=== PATIENT | female | born 1995 | race Hispanic/Latino ===

== ENCOUNTER 2018-11-03 14:08 | Emergency (ER) | payer OTHER, SELFPAY ==
[2018-11-03 15:45] LABS: Urine Blood NEGATIVE (NEG); Urine Glucose NEGATIVE (NEG); Urine Protein NEGATIVE (NEG); Urine pH 6.5 (5.0-7.0)
[2018-11-03 16:20] LABS: ALT/SGPT 48 U/L (12-78); AST/SGOT 23 U/L (15-37); Albumin 3.7 g/dL (3.4-5.0); Alkaline Phosphatase 76 U/L (45-117); BUN Blood Urea Nitrogen 10 mg/dL (7-18); Bicarbonate 27 mmol/L (21-32); Bilirubin Direct < 0.1 mg/dL (0-0.2); Bilirubin Total 0.3 mg/dL (0.2-1.0); Glucose Level 92 mg/dL (74-106); Lipase 43 U/L (73-393); Potassium 3.5 mmol/L (3.5-5.1); Protein, Total 7.5 g/dL (6.4-8.2); Sodium Level 143 mmol/L (136-145)
[2018-11-03 16:28] LABS: Absolute Lymphocytes (CBC) 2.5 K/uL (0.7-4.9); Basophils % 0.5 % (0-1.3); Hematocrit 37.4 % (36.0-45.0); Lymphocytes % 23.8 % (15.3-44.8); MPV 7.8 fL (7.6-11.3)
--- NOTE | 2018-11-03 17:02 | RAD REPORT ---
EXAM DESCRIPTION: CT - Abdomen Pelvis W Contrast - 11/03/2018 4:40 pm CLINICAL HISTORY: right lower abdominal painright lower abdominal pain COMPARISON: None. TECHNIQUE: Biphasic, helical CT imaging of the abdomen and pelvis was performed following 100 ml non -ionic IV contrast. No oral contrast administered. All CT scans are performed using dose optimization technique as appropriate and may include automated exposure control or mA/KV adjustment according to patient size. FINDINGS: No suspicious findings in the lung bases. Fatty infiltration of the liver is present with no focal abnormality. Fatty infiltration of the pancr eas is present with volume loss. No acute pancreatic process seen. No splenomegaly or focal splenic f inding. Gallbladder and biliary tree are also without suspicious finding. Symmetric renal function is seen with no hydronephrosis or suspicious renal mass. No pyelonephritis o r acute parenchymal process. No bladder abnormalities. No adrenal abnormalities. No gastric dilatation or gastric wall thickening. No dilated large or small bowel loops seen. Small m esenteric lymph nodes are present in the right lower quadrant. There small amount of stranding in the fat near the cecum. Appendix is difficult to clearly distinguish from the unopacified small bowel lo ops. A few small mesenteric lymph nodes are seen in the central abdomen. No free air, free fluid or inflammatory stranding. No hernia, mass or bulky lymphadenopathy. Uterus and ovaries show no suspicious findings. No suspicious bony findings. IMPRESSION: No bowel obstruction or free air. Minimal stranding is seen in the right lower quadrant near the cecum. The appendix is not clearly jennifer ntifiable from the unopacified bowel loops. Small mesenteric lymph nodes are seen in the central abdomen and right lower quadrant. Acute appendicitis cannot be excluded. Correlation is needed with any clinical findings for acute alexander endicitis. As clinical findings warrant, the exam can be repeated following oral contrast.
--- NOTE | 2018-11-03 20:11 | RAD REPORT ---
EXAM DESCRIPTION: CT - Pelvis Wo Cont - 11/03/2018 8:03 pm CLINICAL HISTORY: right lower abdominal pain, rule out appy COMPARISON: CT abdomen and pelvis November 03 TECHNIQUE: Axial 5 millimeter thick images of the pelvis were obtained following oral contrast. The CT scan was performed using dose optimization techniques as appropriate to a performed exam incl uding one or more of the following: Automated exposure control, adjustment of the mA and/or kV accord ing to patient size (this includes techniques or standardized protocols for targeted exams where dose is matched to indication/reason for exam) and use of iterative reconstruction technique. FINDINGS: Repeat imaging of the pelvis was performed to allow better visualization of the bowel and appendix. Again noted are numerous mesenteric lymph nodes in the right lower quadrant and in the central mesent eries. Oral CT contrast has reached the terminal ileum and tip of the cecum. The appendix is better v isualized on the current study. Suspicion for appendicitis is diminished following the use repeat taylor ges. A suspicious ovarian process is not identified. The stranding is less evident on the current exa mination. IMPRESSION: Repeat imaging shows better evaluation of the appendix and right lower quadrant structur es. Currently, appendicitis is not suspected. Patient continues to demonstrate multiple small mesenteric lymph nodes.
--- NOTE | 2018-11-03 20:57 | ER ---
Nurse's Notes [facility] Name: Shelia Carr Age: 23 yrs Sex: Female : 1995 Arrival Date: 11/03/2018 Time: 14:13 Bed 23 Private MD: Diagnosis: Lower abdominal pain, unspecified Presentation: 11/03 14:25 Presenting complaint: Patient states: lower abd pain and nausea that began last night. aa5 Pt denies vomiting, denies diarrhea. Transition of care: patient was not received from another setting of care. Onset of symptoms was October 2018. Risk Assessment: Do you want to hurt yourself or someone else? Patient reports no desire to harm self or others. Initial Sepsis Screen: Does the patient meet any 2 criteria? No. Patient's initial sepsis screen is negative. Does the patient have a suspected source of infection? No. Patient's initial sepsis screen is negative. Care prior to arrival: None. 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 - Social history:: Smoking status: Patient/guardian denies using tobacco. - Ebola Screening: : No symptoms or risks identified at this time. Screenin:43 Abuse screen: Denies threats or abuse. Denies injuries from another. Nutritional ca1 screening: No deficits noted. Tuberculosis screening: No symptoms or risk factors identified. Fall Risk None identified. Assessment: 14:43 General: Appears in no apparent distress. comfortable, Behavior is calm, cooperative, ca1 appropriate for age. Pain: Complains of pain in right lower quadrant and suprapubic area Pain does not radiate. Pain currently is 5 out of 10 on a pain scale. Quality of pain is described as sharp, Pain began 1 day ago. Is continuous, Alleviated by heat application. Neuro: Level of Consciousness is awake, alert, obeys commands, Oriented to person, place, time, situation. Cardiovascular: Heart tones S1 S2 present Capillary refill < 3 seconds Patient's skin is warm and dry. Respiratory: Airway is patent Respiratory effort is even, unlabored, Respiratory pattern is regular, symmetrical, Breath sounds are clear bilaterally. GI: Abdomen is round non-distended, Bowel sounds present X 4 quads. Abd is soft and non tender X 4 quads. : No deficits noted. No signs and/or symptoms were reported regarding the genitourinary system. EENT: No deficits noted. No signs and/or symptoms were reported regarding the EENT system. Derm: Skin is intact, is healthy with good turgor, Skin is pink, warm \T\ dry. Musculoskeletal: Circulation, motion, and sensation intact. Capillary refill < 3 seconds, Range of motion: intact in all extremities. 15:44 Reassessment: Patient appears in no apparent distress at this time. Patient and/or ca1 family updated on plan of care and expected duration. Pain level reassessed. Patient is alert, oriented x 3, equal unlabored respirations, skin warm/dry/pink. 17:09 Reassessment: Patient appears in no apparent distress at this time. Patient and/or ca1 family updated on plan of care and expected duration. Pain level reassessed. Patient is alert, oriented x 3, equal unlabored respirations, skin warm/dry/pink. 18:04 Reassessment: Patient appears in no apparent distress at this time. Patient and/or ca1 family updated on plan of care and expected duration. Pain level reassessed. Patient is alert, oriented x 3, equal unlabored respirations, skin warm/dry/pink. PO contrast completed. Notified CT scan. 19:25 Reassessment: Patient appears in no apparent distress at this time. Patient and/or ca1 family updated on plan of care and expected duration. Pain level reassessed. Patient is alert, oriented x 3, equal unlabored respirations, skin warm/dry/pink. 20:44 Reassessment: Patient appears in no apparent distress at this time. Patient and/or ca1 family updated on plan of care and expected duration. Pain level reassessed. Patient is alert, oriented x 3, equal unlabored respirations, skin warm/dry/pink. Vital Signs: 14:26 BP 130 / 62; Pulse 86; Resp 16 S; Temp 97.6(TE); Pulse Ox 98% on R/A; Weight 77.11 kg aa5 (R); Height 5 ft. 5 in. (165.10 cm) (R); Pain 5/10; 15:40 BP 107 / 88; Pulse 68; Resp 15 S; Pulse Ox 100% on R/A; ca1 17:13 BP 111 / 76; Pulse 81; Resp 16 S; Pulse Ox 99% on R/A; ca1 18:29 BP 110 / 72; Pulse 79; Resp 15; Temp 98.3(O); Pulse Ox 100% on R/A; ca1 19:25 BP 108 / 76; Pulse 81; Resp 17 S; Pulse Ox 98% on R/A; ca1 20:44 BP 113 / 81; Pulse 82; Resp 17 S; Pulse Ox 99% on R/A; ca1 14:26 Body Mass Index 28.29 (77.11 kg, 165.10 cm) aa5 ED Course: 14:13 Patient arrived in ED. mr 14:25 Triage completed. aa5 14:25 Arm band placed on. aa 14:28 Ace Villar PA is PHCP. [facility] 14:28 Fidel Terry MD is Attending Physician. jmm 14:43 Patient has correct armband on for positive identification. Placed in gown. Bed in low ca1 position. Call light in reach. Side rails up X 1. Pulse ox on. NIBP on. Warm blanket given. 14:47 Gin Sherwood, RN is Primary Nurse. ca1 15:18 Missed attempt(s): 22 gauge in left upper arm. Bleeding controlled, band aid applied, ca1 catheter tip intact. 15:38 Missed attempt(s): 22 gauge in left antecubital area. Bleeding controlled, band aid ca1 applied, catheter tip intact. 15:51 Inserted saline lock: 22 gauge in right antecubital area, using aseptic technique. ca1 Blood collected. 16:15 Radiology exam delayed due to lab results not completed at this time. (BUN/Creatinine). kw1 16:17 No provider procedures requiring assistance completed. ca1 16:51 CT Abd/Pelvis - IV Contrast Only In Process Unspecified. EDMS 18:01 Rashawn Odell MD is Attending Physician. jmm 20:02 Pelvis Wo Cont In Process Unspecified. EDMS 21:04 IV discontinued, intact, bleeding controlled, No redness/swelling at site. Pressure ca1 dressing applied. Administered Medications: No medications were administered Outcome: 20:56 Discharge ordered by . kdr 21:04 Discharged to home ambulatory, with significant other. ca1 21:04 Condition: stable 21:04 Discharge instructions given to patient, Instructed on discharge instructions, follow up and referral plans. medication usage, Demonstrated understanding of instructions, follow-up care, medications, Prescriptions given X 1. 21:05 Patient left the ED. ca1 Signatures: Dispatcher [employer] EDMS Rashawn Odell MD MD kdr Mickail, Joel, PA PA jmm Rivera, Mary mr Walter, Esmer, RN RN aa5 Randa Hernandez kw1 Gin Sherwood, RN RN ca1 Corrections: (The following items were deleted from the chart) 15:38 15:18 Missed attempt(s): 22 gauge in left antecubital area. Bleeding controlled, band ca1 aid applied, catheter tip intact. ca1
--- NOTE | 2018-11-03 20:57 | EDPHYS ---
Physician Documentation [facility] Name: Shelia Carr Age: 23 yrs Sex: Female : 1995 Arrival Date: 11/03/2018 Time: 14:13 Bed 23 Private MD: ED Physician Rashawn Odell HPI: 11/03 14:49 This 23 yrs old Female presents to ER via Ambulatory with complaints of [facility] Abdominal Pain. 14:49 The patient presents with abdominal pain. Onset: The symptoms/episode began/occurred jmm gradually, 1 day(s) ago. The symptoms do not radiate. Associated signs and symptoms: Pertinent positives: nausea, Pertinent negatives: diarrhea, vomiting. The symptoms are described as achy, intermittent. This is a 23 year old female with no chronic medical conditions that presents to the ED with complaints of right lower abdominal pain beginning 1 day ago. Pain is intermittent. Denies vomiting or diarrhea. Patient states having a history of ovarian cysts. . 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 - Social history:: Smoking status: Patient/guardian denies using tobacco. - Ebola Screening: : No symptoms or risks identified at this time. ROS: 14:49 Constitutional: Negative for fever, chills, and weight loss, Cardiovascular: Negative jmm for chest pain, palpitations, and edema, Respiratory: Negative for shortness of breath, cough, wheezing, and pleuritic chest pain. 14:49 Abdomen/GI: Positive for abdominal pain. 14:49 All other systems are negative. Exam: 14:49 Constitutional: This is a well developed, well nourished patient who is awake, alert, jmm and in no acute distress. Head/Face: atraumatic. Eyes: EOMI, no conjunctival erythema appreciated ENT: Moist Mucus Membranes Neck: Trachea midline, Supple Chest/axilla: Normal chest wall appearance and motion. Cardiovascular: Regular rate and rhythm. No edema appreciated Respiratory: Normal respirations, no respiratory distress appreciated 14:49 Abdomen/GI: Inspection: abdomen appears normal, Bowel sounds: normal, Palpation: soft, mild abdominal tenderness, in the suprapubic area and right lower quadrant. 14:49 Musculoskeletal/extremity: ROM: intact in all extremities. 14:49 Skin: Appearance: Color: normal in color. 14:49 Neuro: Orientation: is normal, Mentation: is normal, Memory: is normal. 14:49 Psych: Behavior/mood is pleasant, cooperative. Vital Signs: 14:26 BP 130 / 62; Pulse 86; Resp 16 S; Temp 97.6(TE); Pulse Ox 98% on R/A; Weight 77.11 kg aa5 (R); Height 5 ft. 5 in. (165.10 cm) (R); Pain 5/10; 15:40 BP 107 / 88; Pulse 68; Resp 15 S; Pulse Ox 100% on R/A; ca1 17:13 BP 111 / 76; Pulse 81; Resp 16 S; Pulse Ox 99% on R/A; ca1 18:29 BP 110 / 72; Pulse 79; Resp 15; Temp 98.3(O); Pulse Ox 100% on R/A; ca1 19:25 BP 108 / 76; Pulse 81; Resp 17 S; Pulse Ox 98% on R/A; ca1 20:44 BP 113 / 81; Pulse 82; Resp 17 S; Pulse Ox 99% on R/A; ca1 14:26 Body Mass Index 28.29 (77.11 kg, 165.10 cm) aa5 MDM: 14:42 Patient medically screened. [facility] 17:59 Data reviewed: vital signs, nurses notes. ED course: CT can not rule out appendicitis. [facility] oral contrast studied order. I discussed the patient with Dr. Odell whom will follow up with the patient. . 18:01 Transition of care: After a detail discussion of the patient's case, care is [facility] transferred to Rashawn Odell MD. 11/03 14:49 Order name: Basic Metabolic Panel; Complete Time: 16:31 [facility] 11/03 14:49 Order name: CBC with Diff; Complete Time: 17:10 [facility] 11/03 14:49 Order name: Creatinine for Radiology; Complete Time: 16:19 [facility] 11/03 14:49 Order name: Hepatic Function; Complete Time: 16:31 [facility] 11/03 14:49 Order name: Lipase; Complete Time: 16:31 [facility] 11/03 15:18 Order name: Urine Dipstick--Ancillary (enter results); Complete Time: 15:46 11/03 14:42 Order name: Urine Dipstick-Ancillary (obtain specimen); Complete Time: 14:57 [facility] 11/03 14:42 Order name: Urine Test (obtain specimen); Complete Time: 14:57 [facility] 11/03 14:49 Order name: IV Saline Lock; Complete Time: 15:52 [facility] 11/03 14:49 Order name: Labs collected and sent; Complete Time: 15:52 [facility] 11/03 14:49 Order name: CT Abd/Pelvis - IV Contrast Only; Complete Time: 17:27 [facility] 11/03 15:20 Order name: Urine --Ancillary (enter results); Complete Time: 15:46 11/03 17:43 Order name: Pelvis Wo Cont; Complete Time: 20:55 EDMS Administered Medications: No medications were administered Disposition: 20:56 Co-signature as Attending Physician, Rashawn Odell MD I agree with the assessment and kdr plan of care. Disposition: 11/03/18 20:56 Discharged to Home. Impression: Lower abdominal pain, unspecified. - Condition is Stable. - Discharge Instructions: Abdominal Pain, Adult. - Prescriptions for Bentyl 20 mg Oral Tablet - take 1 tablet by ORAL route every 6 hours As needed; 20 tablet. - Medication Reconciliation Form, Thank You Letter, Antibiotic Education, Prescription Opioid Use, Work release form, Family Work Release form. - Follow up: Private Physician; When: 2 - 3 days; Reason: Recheck today's complaints, Continuance of care, Re-evaluation by your physician. - Notes: Please follow up with your primary care provider. Please return to the ED if you develop increased right lower abdominal pain, vomiting, fever, or any other concerning symptoms. Signatures: Dispatcher [employer] EDID Rashawn Odell MD MD kdr Mickail, Joel, PA PA jmm Calderon, Audri, RN RN aa5 Gin Sherwood RN RN ca1 Corrections: (The following items were deleted from the chart) 17:43 17:37 Pelvis W/Cont+CT.RAD.BRZ ordered. [facility] 21:05 20:56 11/03/2018 20:56 Discharged to Home. Impression: Lower abdominal pain, ca1 unspecified. Condition is Stable. Discharge Instructions: Abdominal Pain, Adult. Prescriptions for Bentyl 20 mg Oral Tablet - take 1 tablet by ORAL route every 6 hours As needed; 20 tablet. and Forms are Medication Reconciliation Form, Thank You Letter, Antibiotic Education, Prescription Opioid Use. Follow up: Private Physician; When: 2 - 3 days; Reason: Recheck today's complaints, Continuance of care, Re-evaluation by your physician. kdr
[2018-11-03 22:47] VITALS: TEMP 98.3
[2018-11-03 22:50] VITALS: BP 113/81; O2SAT 99
== END 2018-11-03 21:05 | disposition home or self-care (01) ==
LOC: ER 14:08
DX: R10.31 Right lower quadrant pain (principal)
CPT/HCPCS: 36415; 72192; 74177; 80048; 80076; 81003; 81025; 83690; 85025; 99284; Q9967

== ENCOUNTER 2018-12-08 13:14 | Emergency (ER) | payer SELFPAY ==
--- NOTE | 2018-12-08 14:48 | ER ---
Nurse's Notes [facility] Name: Shelia Carr Age: 23 yrs Sex: Female : 1995 Arrival Date: 12/08/2018 Time: 13:17 Bed 10 Private MD: Unknown, Unknown Diagnosis: Diarrhea, unspecified Presentation: 12/08 13:35 Presenting complaint: Patient states: FEVER AND DIARRHEA x3 DAYS, SCATTERED HIVES SINCE bp 0200. Transition of care: patient was not received from another setting of care. Onset: The symptoms/episode began/occurred this morning. Anaphylaxis evaluation, no signs or symptoms of anaphylaxis were noted. Onset of symptoms is unknown. Risk Assessment: Do you want to hurt yourself or someone else? Patient reports no desire to harm self or others. Initial Sepsis Screen: Does the patient meet any 2 criteria? No. Patient's initial sepsis screen is negative. Does the patient have a suspected source of infection? No. Patient's initial sepsis screen is negative. Note HIVES SCATTERED TO EXTREMITIES, NO AIRWAY INVOLVEMENT. Care prior to arrival: None. 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 - Social history:: Smoking status: Patient/guardian denies using tobacco, Patient/guardian denies using alcohol, street drugs, The patient lives with family. - Ebola Screening: : No symptoms or risks identified at this time. - Family history:: not pertinent. - Hospitalizations: : No recent hospitalization is reported. Screenin:28 Abuse screen: Denies threats or abuse. Denies injuries from another. Nutritional rv screening: No deficits noted. Tuberculosis screening: No symptoms or risk factors identified. Fall Risk None identified. Assessment: 14:26 General: Appears in no apparent distress. comfortable, Behavior is calm, cooperative. rv Pain: Denies pain. Neuro: Level of Consciousness is awake, alert, obeys commands, Oriented to person, place, time, situation. Cardiovascular: Patient's skin is warm and dry. Respiratory: Airway is patent Respiratory effort is even, Breath sounds are clear bilaterally. GI: Reports diarrhea. : No signs and/or symptoms were reported regarding the genitourinary system. EENT: No signs and/or symptoms were reported regarding the EENT system. Derm: Rash noted that is red, on right arm, left arm, right leg and left leg. Musculoskeletal: No signs and/or symptoms reported regarding the musculoskeletal system. 15:03 Reassessment: Patient appears in no apparent distress at this time. No changes from rv previously documented assessment. DR LARA TALKED TO THE PATIENT AND EXPLAINED THE PLAN OF CARE. PATIENT AGREED. DISCHARGED. Vital Signs: 13:37 BP 112 / 68; Pulse 89; Resp 20; Temp 97.4; Pulse Ox 100% ; Weight 77.11 kg; Height 5 bp ft. 6 in. (167.64 cm); 15:04 BP 110 / 66; Pulse 84; Resp 15; Temp 97.8; Pulse Ox 100% ; rv 13:37 Body Mass Index 27.44 (77.11 kg, 167.64 cm) bp ED Course: 13:17 Patient arrived in ED. ag5 13:17 Unknown, Unknown is Private Physician. ag5 13:36 Triage completed. bp 13:37 Arm band placed on. bp 14:10 Sung Garcia RN is Primary Nurse. rv 14:23 Romaine Lara MD is Attending Physician. ma2 14:28 Call light in reach. Cardiac monitoring not applicable on this patient. rv 15:03 No provider procedures requiring assistance completed. Patient did not have IV access rv during this emergency room visit. Administered Medications: No medications were administered Outcome: 14:47 Discharge ordered by . ma2 15:04 Discharged to home ambulatory, with family. rv 15:04 Condition: good 15:04 Discharge instructions given to patient, Instructed on discharge instructions, follow up and referral plans. medication usage, Demonstrated understanding of instructions, follow-up care, medications, Prescriptions given X 4. 15:04 Patient left the ED. rv Signatures: Stef Smith, RN Romaine Zuleta MD MD ma2 Vicente, Ronaldo, RN RN Lanie Weston ag5
--- NOTE | 2018-12-08 14:48 | EDPHYS ---
Physician Documentation [facility] Name: Shelia Carr Age: 23 yrs Sex: Female : 1995 Arrival Date: 12/08/2018 Time: 13:17 Bed 10 Private MD: Unknown, Unknown ED Physician Romaine Cade HPI: 12/08 14:45 This 23 yrs old Female presents to ER via Ambulatory with complaints of Hives, ma2 Fever, Cold Symptoms. 14:45 Onset: The symptoms/episode began/occurred gradually, 3 day(s) ago. Associated signs ma2 and symptoms: Pertinent positives: diarrhea, Pertinent negatives: altered mental status, chest pain, cough, myalgias, nausea, sinus congestion. Severity of symptoms: At their worst the symptoms were mild in the emergency department the symptoms are unchanged. The patient has experienced similar episodes in the past. diarrhea x 3 days and allergic reaction i offered im shots in er she declined . [employer]: 13:37 LMP 11/19/2018 bp Historical: - Allergies: 13:37 No Known Allergies; bp - Home Meds: 13:37 None [Active]; bp - PMHx: 13:37 None; bp - Immunization history:: Adult Immunizations up to date. - Social history:: Smoking status: Patient/guardian denies using tobacco, Patient/guardian denies using alcohol, street drugs, The patient lives with family. - Ebola Screening: : No symptoms or risks identified at this time. - Family history:: not pertinent. - Hospitalizations: : No recent hospitalization is reported. ROS: 14:45 Constitutional: Negative for fever, chills, and weight loss. ma2 14:45 All other systems are negative. Exam: 14:45 Constitutional: This is a well developed, well nourished patient who is awake, alert, ma2 and in no acute distress. Head/Face: Normocephalic, atraumatic. Eyes: Pupils equal round and reactive to light, extra-ocular motions intact. Lids and lashes normal. Conjunctiva and sclera are non-icteric and not injected. Cornea within normal limits. Periorbital areas with no swelling, redness, or edema. ENT: Nares patent. No nasal discharge, no septal abnormalities noted. Tympanic membranes are normal and external auditory canals are clear. Oropharynx with no redness, swelling, or masses, exudates, or evidence of obstruction, uvula midline. Mucous membranes moist. Neck: Trachea midline, no thyromegaly or masses palpated, and no cervical lymphadenopathy. Supple, full range of motion without nuchal rigidity, or vertebral point tenderness. No Meningismus. Chest/axilla: Normal chest wall appearance and motion. Nontender with no deformity. No lesions are appreciated. Cardiovascular: Regular rate and rhythm with a normal S1 and S2. No gallops, murmurs, or rubs. Normal PMI, no JVD. No pulse deficits. Respiratory: Lungs have equal breath sounds bilaterally, clear to auscultation and percussion. No rales, rhonchi or wheezes noted. No increased work of breathing, no retractions or nasal flaring. Abdomen/GI: Soft, non-tender, with normal bowel sounds. No distension or tympany. No guarding or rebound. No evidence of tenderness throughout. Skin: Warm, dry with normal turgor. Normal color with no rashes, no lesions, and no evidence of cellulitis. MS/ Extremity: Pulses equal, no cyanosis. Neurovascular intact. Full, normal range of motion. Neuro: Awake and alert, GCS 15, oriented to person, place, time, and situation. Cranial nerves II-XII grossly intact. Motor strength 5/5 in all extremities. Sensory grossly intact. Cerebellar exam normal. Normal gait. 14:45 Skin: hives on extensors arm area,, Warm, dry with normal turgor. Normal color with ma2 no rashes, no lesions, and no evidence of cellulitis. Vital Signs: 13:37 BP 112 / 68; Pulse 89; Resp 20; Temp 97.4; Pulse Ox 100% ; Weight 77.11 kg; Height 5 bp ft. 6 in. (167.64 cm); 15:04 BP 110 / 66; Pulse 84; Resp 15; Temp 97.8; Pulse Ox 100% ; rv 13:37 Body Mass Index 27.44 (77.11 kg, 167.64 cm) bp MDM: 14:23 Patient medically screened. ma2 14:45 Differential diagnosis: viral Infection, URI, bronchitis. Data reviewed: vital signs, ma2 nurses notes. Counseling: I had a detailed discussion with the patient and/or guardian regarding: the historical points, exam findings, and any diagnostic results supporting the discharge/admit diagnosis, the presence of at least one elevated blood pressure reading (>120/80) during this emergency department visit, the need for outpatient follow up. Response to treatment: the patient's symptoms have markedly improved after treatment. Administered Medications: No medications were administered Disposition: 12/08/18 14:47 Discharged to Home. Impression: Diarrhea, unspecified. - Condition is Stable. - Discharge Instructions: Diarrhea, Adult. - Prescriptions for Benadryl 25 mg Oral Capsule - take 1 capsule by ORAL route every 6 hours As needed; 30 tablet. Zofran 4 mg Oral Tablet - take 1 tablet by ORAL route every 12 hours As needed; 20 tablet. Medrol (Edvin) 4 mg Oral Tablets, Dose Pack - take 1 tablet by ORAL route as directed - follow package instructions; 1 packet. Pepcid 20 mg Oral Tablet - take 1 tablet by ORAL route once daily for 10 days; 10 tablet. - Medication Reconciliation Form, Thank You Letter, Antibiotic Education, Prescription Opioid Use, Work release form, Family Work Release form. - Follow up: Private Physician; When: Tomorrow; Reason: Continuance of care. Signatures: Stef Smith, RN RN bp Romaine Cade MD MD ma2 Sung Garcia RN RN rv Corrections: (The following items were deleted from the chart) 15:04 14:47 12/08/2018 14:47 Discharged to Home. Impression: Diarrhea, unspecified. Condition rv is Stable. Forms are Medication Reconciliation Form, Thank You Letter, Antibiotic Education, Prescription Opioid Use. Follow up: Private Physician; When: Tomorrow; Reason: Continuance of care. maHeather
[2018-12-08 15:22] VITALS: O2SAT 100
[2018-12-08 15:23] VITALS: BP 110/66; TEMP 97.8
== END 2018-12-08 15:04 | disposition home or self-care (01) ==
LOC: ER 13:14
DX: R19.7 Diarrhea, unspecified (principal)
CPT/HCPCS: 99282